=== PATIENT | male | born 1940 | race Caucasian/White ===

== ENCOUNTER 2020-09-19 10:05 | Inpatient (IN) ==
[2020-09-19] MEDS ORDERED: OPTIRAY 350 500ml IV ONE (10:24)
--- NOTE | 2020-09-19 10:25 | CT Scan Report ---
HEAD CT NONCONTRAST CT DOSE: HISTORY: Slurred speech. Dizziness. Stroke Like Symptoms TECHNIQUE: Multiaxial CT images of the head were performed without the use of intravenous contrast. A utomated exposure control was utilized for this study. A dose lowering technique was utilized adheri ng to the principles of ALARA. Comparison: None. Findings: Mild mucosal thickening within the ethmoid air cells. The mastoid air cells are clear. The calvarium and skull base are intact. There is no mass, hematoma, midline shift, acute infarct. White matter hypodensity is nonspecific but suggestive of microvascular ischemic change. The ventricles and sulci demonstrate mild age-related involutional changes. Impression: No acute intracranial abnormality. Atrophy and microvascular ischemic changes. ACT 112: Negative or not required by law. Electronically signed by: Chapo Ratliff M.D. 09/19/2020 10:24 AM
--- NOTE | 2020-09-19 10:37 | CT Scan Report ---
HEAD & NECK CTA HISTORY: Slurred speech. Dizziness. Stroke Like Symptoms TECHNIQUE: Multiaxial CT images of the head were performed following the intravenous administration o f contrast to evaluate the major cerebral vessels. Multiaxial CT images of the neck were also perform ed following the intravenous administration of contrast to evaluate the major cervical vessels. Maxim um intensity projection images were also obtained. A dose lowering technique was utilized adhering to the principles of ALARA. COMPARISON: None. FINDINGS: There is no mass, hematoma, midline shift, or acute infarct. Hypoplastic distal right vertebral arter y. There is moderate to severe multifocal narrowing seen within the distal intracranial vertebral art eries. There is focal moderate to severe narrowing of up to 60% within the proximal basilar artery be st seen on image 74. There is a hypoplastic right T1 segment which is considered a normal variant. Th ere is mild to moderate multifocal narrowing within the bilateral employment program representative without evidence for occlusion . There is no significant stenosis, occlusion, or aneurysm identified within the bilateral ACAs or MC As. No significant stenosis within the intracranial internal carotid arteries. There is mild calcifie d plaque within the bilateral carotid siphons. The major dural venous sinuses are patent. The aortic arch and proximal great vessels are widely patent. Moderate focal narrowing at the origi n of the right vertebral artery due to the calcified plaque. The right vertebral artery is slightly h ypoplastic in comparison to the left. No significant stenosis within the cervical portion of the left vertebral artery. Moderate atherosclerotic plaque within the distal aortic arch. Mild calcified plaq ue within the bilateral carotid bulbs. IMPRESSION: 1. Multifocal moderate to severe narrowing within the distal intracranial portions of the bilateral v ertebral arteries, proximal basilar artery as described above. 2. Mild to moderate multifocal narrowing within the bilateral employment program representative without evidence for occlusion. 3. No significant stenosis, occlusion, or aneurysm seen within the bilateral ACAs are MCAs. 4. No significant stenosis, occlusion, or dissection within the bilateral carotid arteries. 5. Moderate focal narrowing at the origin of the right vertebral artery due to the calcified plaque. ACT 112: Negative or not required by law. Electronically signed by: Chapo Ratliff M.D. 09/19/2020 10:35 AM
--- NOTE | 2020-09-19 10:43 | Emergency Department Note ---
History of Present Illness General Chief complaint: Stroke/CVA Symptoms Stated complaint: SLURRED SPEECH,DIZZY Time Seen by Provider: 09/19/20 10:15 Source: patient and family History of Present Illness Provider complaint: Difficulty walking Onset (ago): hour(s) Location: head Pain Consistency: + constant Maximum Pain Intensity: 0 Quality: + other (Unable to stand on 1 foot and leans toward the right side when walking) Relieved By: + none Associated symptoms: no chest pain, no cough, no fever/chills, no headaches, no malaise, no nausea/vomiting, no shortness of breath and no weakness This is a 80-year-old male who comes in with difficulty walking and difficulty speaking. He states his difficulty walking started last night at approximately 9 PM. He states that he was off balance and would lean toward the right side when he try to walk. Today in the shower he was unable to stand on 1 foot which is not normal for him. He also states that he has trouble articulating words. He is not having any trouble understanding or finding words. His states his speech was very slurred prior to arrival. The patient states he does not feel weak on one side of his body. He denies any problems with his vision or swallowing. He has had no recent illness and denies fever, cough or cold symptoms, headache, head injury, chest pain, shortness of breath, abdominal pain, vomiting or diarrhea. He has never had a stroke before. He states that he takes a baby aspirin every day and last took 1 last night. He is on lisinopril for hypertension. Home Medications Medication Instructions Recorded Confirmed Type aspirin [Aspirin Low Dose] 81 mg PO DAILY 09/19/20 09/19/20 History lisinopril 10 mg PO DAILY 09/19/20 09/19/20 History Allergies Allergy/AdvReac Type Severity Reaction Status Date / Time No Known Allergies Allergy Unverified 09/19/20 11:16 Past Med/Surg History Medical History (Updated 09/19/20 @ 17:06 by Rasheed Coughlin MD) Hypertension Proximal humerus fracture (07/09/13) Retinal vein occlusion Traumatic dislocation of left shoulder (07/07/13) Surgical History (Updated 09/19/20 @ 11:35 by Dalila Magana PA-C) H/O eye surgery History of shoulder surgery Family History (Updated 09/19/20 @ 11:35 by Dalila Magana PA-C) Other Heart disease Social History Smoking Status: Current some day smoker Tobacco Type: Pipe Do You Dip or Chew Tobacco: No; Hx Alcohol Use: No Hx Substance Use: No Preferred Language: Welsh Communication Ability: Effective Beliefs That Will Affect Care: None Current Living Situation: Spouse Other Information That Helps Us Care for You: No Feels Safe at Home: Yes Safety Concerns: Feels Safe At This Time Assistive Devices: Denture - Upper, Denture - Lower, Glasses and Hearing Aid - Bilateral Review of Systems See HPI for pertinent positives & negatives. and A total of 10 systems reviewed and were otherwise negative Physical Exam Vital Signs Vital Signs - 24 hr 09/19/20 10:09 09/19/20 10:30 09/19/20 10:36 Temperature 37 C Temperature Source Temporal Artery Scan Pulse Rate 65 69 57 L Pulse Rate from SpO2 Sensor 65 57 L Respiratory Rate 18 13 13 Respiratory Effort / Characteristics Non-Labored Spontaneous Respiratory Depth Normal Respiratory Pattern Regular Blood Pressure 189/98 H 158/81 H Blood Pressure Mean 128 106 Blood Pressure Position Sitting Pulse Oximetry 95 96 98 Oxygen Delivery Method Room Air Sepsis Recent Fever Within 48 Hours No Sepsis New/Unexplained Change in Mental Status N/A Sepsis Action Taken by Nursing No Action Required 09/19/20 10:45 09/19/20 10:49 09/19/20 11:00 Temperature Temperature Source Pulse Rate 58 L 58 L Pulse Rate from SpO2 Sensor 60 Respiratory Rate 23 19 Respiratory Effort / Characteristics Respiratory Depth Respiratory Pattern Blood Pressure 134/79 136/73 139/80 Blood Pressure Mean 97 94 99 Blood Pressure Position Pulse Oximetry 95 Oxygen Delivery Method Sepsis Recent Fever Within 48 Hours Sepsis New/Unexplained Change in Mental Status Sepsis Action Taken by Nursing Constitutional: Vital signs reviewed. Eyes: Pupils are equal round reactive to light. Conjunctiva are noninjected. ENT: Pharynx is clear without erythema or exudate. Mucous membranes are moist. Neck supple without meningeal signs. Respiratory: Clear to auscultation bilaterally. Breath sounds are equal bilaterally. Cardiovascular: Regular rate and rhythm. No rubs or gallops. GI: Soft, nondistended and nontender. Bowel sounds are present. Musculoskeletal: No peripheral edema. No lower extremity tenderness. Integumentary: No cyanosis. or jaundice. Neurologic: The patient is awake and alert. Cranial nerves II-XII are intact. Motor is 5 out of 5 all extremities. Sensation is intact to light touch all extremities. Intermittent slight slurring of the speech. No pronator drift. No limb ataxia. Psychiatric: Normal affect. Not anxious appearing. Course Administered Medications Sodium Chloride (Nss) 500 mls @ 75 mls/hr IV .[id number] FLOYD Stop: 09/19/20 22:59 Last Admin: 09/19/20 16:41 Dose: 75 mls/hr Documented by: [id number] Discontinued Medications Aspirin (Aspirin 81 Mg Chew) 81 mg PO NOW STA Stop: 09/19/20 11:07 Last Admin: 09/19/20 12:03 Dose: 81 mg Documented by: [id number] Clopidogrel Bisulfate (Clopidogrel Bisulfate 300 Mg Tab) 300 mg PO NOW STA Stop: 09/19/20 11:07 Last Admin: 09/19/20 12:03 Dose: 300 mg Documented by: [id number] Ioversol (Optiray 350 500ml) 116 ml IV ONCE ONE Stop: 09/19/20 10:25 Last Admin: 09/19/20 10:25 Dose: 116 ml Documented by: [id number] Critical Care Time Critical Care Time: Yes Total Critical Care Time: 35 I have personally spent approximately 35 minutes of critical care time in the direct management of this patient. This includes bedside care, interpretation of diagnostic studies, and testing, discussion with consultants, patient, and family members, and other required patient management activities. These minutes are in excess of all separately billable procedures. Medical Decision Making Differential Diagnosis TIA, CVA, intracranial mass, intracranial hemorrhage, metabolic derangement Medical Records Attestation: I reviewed the patient's medical records. I did perform a limited focused review of portions of the patient's old chart on the electronic medical record. The patient has had no recent pertinent visits to this hospital. Home Medications Current Medication List: was personally reviewed by me Laboratory Data Attestation: I reviewed the patient's lab results. Result diagrams: 09/19/20 10:31 09/19/20 10:31 Lab Results 09/19/20 09/19/20 09/19/20 Range/Units 10:29 10:31 10:31 WBC 6.69 (4.8-10.8) K/uL RBC 4.03 L (4.7-6.1) M/uL Hgb 12.7 L (14.0-18.0) g/dL Hct 37.4 L (42-52) % MCV 92.8 (80-100) fL MCH 31.5 (25-34) pg MCHC 34.0 (32-36) g/dL RDW Std Deviation 46.6 H (36.4-46.3) fL RDW Coeff of Ayaz 13.6 (11.5-14.5) % Plt Count 209 (130-400) K/uL MPV 10.3 (7.4-10.4) fL Immature Gran % (Auto) 0.3 % Neut % (Auto) 64.0 % Lymph % (Auto) 20.6 % Reynolds % (Auto) 7.9 % Eos % (Auto) 6.9 % Baso % (Auto) 0.3 % Neut # (Auto) 4.28 (1.4-6.5) K/uL Lymph # (Auto) 1.38 (1.2-3.4) K/uL Reynolds # (Auto) 0.53 (0.11-0.59) K/uL Eos # (Auto) 0.46 (0-0.5) K/uL Baso # (Auto) 0.02 (0-0.2) K/uL Immature Gran # (Auto) 0.02 (0.00-0.02) K/uL PT (9.0-12.0) Seconds INR (0.9-1.1) APTT (21.0-31.0) Seconds PTT Ratio Sodium (136-145) mmol/L Potassium (3.5-5.1) mmol/L Chloride (98-107) mmol/L Carbon Dioxide (21-32) mmol/L Anion Gap (3-11) BUN (7-18) mg/dl Creatinine (0.6-1.4) mg/dl Est Cr Clr Drug Dosing ml/min Est GFR ( Amer) Est GFR (Non-Af Amer) BUN/Creatinine Ratio (10-20) Glucose (70-99) mg/dl POC Glucose 105 H (70-99) mg/dl Calcium (8.5-10.1) mg/dl Magnesium (1.8-2.4) mg/dl Total Bilirubin (0.2-1) mg/dl AST (15-37) U/L ALT (12-78) U/L Alkaline Phosphatase (45-117) U/L Troponin I (0-0.045) ng/ml Total Protein (6.4-8.2) gm/dl Albumin (3.4-5.0) gm/dl Globulin (2.5-4.0) gm/dl Albumin/Globulin Ratio (0.9-2) Blood Type O Positive Antibody Screen NEGATIVE 09/19/20 09/19/20 Range/Units 10:31 10:31 WBC (4.8-10.8) K/uL RBC (4.7-6.1) M/uL Hgb (14.0-18.0) g/dL Hct (42-52) % MCV (80-100) fL MCH (25-34) pg MCHC (32-36) g/dL RDW Std Deviation (36.4-46.3) fL RDW Coeff of Ayaz (11.5-14.5) % Plt Count (130-400) K/uL MPV (7.4-10.4) fL Immature Gran % (Auto) % Neut % (Auto) % Lymph % (Auto) % Reynolds % (Auto) % Eos % (Auto) % Baso % (Auto) % Neut # (Auto) (1.4-6.5) K/uL Lymph # (Auto) (1.2-3.4) K/uL Reynolds # (Auto) (0.11-0.59) K/uL Eos # (Auto) (0-0.5) K/uL Baso # (Auto) (0-0.2) K/uL Immature Gran # (Auto) (0.00-0.02) K/uL PT 10.9 (9.0-12.0) Seconds INR 1.1 (0.9-1.1) APTT 28.4 (21.0-31.0) Seconds PTT Ratio 1.1 Sodium 134 L (136-145) mmol/L Potassium 4.1 (3.5-5.1) mmol/L Chloride 106 (98-107) mmol/L Carbon Dioxide 25 (21-32) mmol/L Anion Gap 3.0 (3-11) BUN 13 (7-18) mg/dl Creatinine 1.01 (0.6-1.4) mg/dl Est Cr Clr Drug Dosing 56.6 ml/min Est GFR ( Amer) 81.6 Est GFR (Non-Af Amer) 70.4 BUN/Creatinine Ratio 13.2 (10-20) Glucose 100 H (70-99) mg/dl POC Glucose (70-99) mg/dl Calcium 8.2 L (8.5-10.1) mg/dl Magnesium 2.1 (1.8-2.4) mg/dl Total Bilirubin 0.7 (0.2-1) mg/dl AST 15 (15-37) U/L ALT 18 (12-78) U/L Alkaline Phosphatase 47 (45-117) U/L Troponin I < 0.015 (0-0.045) ng/ml Total Protein 5.7 L (6.4-8.2) gm/dl Albumin 3.0 L (3.4-5.0) gm/dl Globulin 2.7 (2.5-4.0) gm/dl Albumin/Globulin Ratio 1.1 (0.9-2) Blood Type Antibody Screen Imaging Data Radiologist's Impression: Chest X-Ray 09/19/20 10:15 XR chest 1V portable HISTORY: 80 years-old Male Stroke Like Symptoms acute strokelike symptoms COMPARISON: Chest radiographs 07/07/2013 TECHNIQUE: Portable AP view of the chest FINDINGS: Cardiac mediastinal and hilar silhouettes are within normal limits. Outside plaque of the thoracic aorta. No pneumothorax, pleural effusion, airspace consolidation or overt pulmonary edema. Degenerative changes of the spine and right shoulder. Reverse left shoulder total joint arthroplasty. IMPRESSION: No acute process. ACT 112: Negative or not required by law. The above report was generated using voice recognition software. It may contain grammatical, syntax or spelling errors. Electronically signed by: Jasson Estrada M.D. 09/19/2020 11:[address] 09/19/20 10:[address] DOSE: HISTORY: Slurred speech. Dizziness. Stroke Like Symptoms TECHNIQUE: Multiaxial CT images of the head were performed without the use of intravenous contrast. Automated exposure control was utilized for this study. A dose lowering technique was utilized adhering to the principles of ALARA. Comparison: None. Findings: Mild mucosal thickening within the ethmoid air cells. The mastoid air cells are clear. The calvarium and skull base are intact. There is no mass, hematoma, midline shift, acute infarct. White matter hypodensity is nonspecific but suggestive of microvascular ischemic change. The ventricles and sulci demonstrate mild age-related involutional changes. Impression: No acute intracranial abnormality. Atrophy and microvascular ischemic changes. ACT 112: Negative or not required by law. Electronically signed by: Chapo Ratliff M.D. 09/19/2020 10:24 AM Head CTA 09/19/20 10:15 HEAD & NECK CTA HISTORY: Slurred speech. Dizziness. Stroke Like Symptoms TECHNIQUE: Multiaxial CT images of the head were performed following the intravenous administration of contrast to evaluate the major cerebral vessels. M ultiaxial CT images of the neck were also performed following the intravenous administration of contrast to evaluate the major cervical vessels. Maximum intensity projection images were also obtained. A dose lowering technique was utilized adhering to the principles of ALARA. COMPARISON: None. FINDINGS: There is no mass, hematoma, midline shift, or acute infarct. Hypoplastic distal right vertebral artery. There is moderate to severe multifocal narrowing seen within the distal intracranial vertebral arteries. There is focal moderate to severe narrowing of up to 60% within the proximal basilar artery best seen on image 74. There is a hypoplastic right T1 segment which is considered a normal variant. There is mild to moderate multifocal narrowing within the bilateral foundation director without evidence for occlusion. There is no significant stenosis, occlusion, or aneurysm identified within the bilateral ACAs or MCAs. No s ignificant stenosis within the intracranial internal carotid arteries. There is mild calcified plaque within the bilateral carotid siphons. The major dural venous sinuses are patent. The aortic arch and proximal great vessels are widely patent. Moderate focal narrowing at the origin of the right vertebral artery due to the calcified plaque. The right vertebral artery is slightly hypoplastic in comparison to the left. No significant stenosis within the cervical portion of the left vertebral artery. Moderate atherosclerotic plaque within the distal aortic arch. Mild c alcified plaque within the bilateral carotid bulbs. IMPRESSION: 1. Multifocal moderate to severe narrowing within the distal intracranial portions of the bilateral vertebral arteries, proximal basilar artery as described above. 2. Mild to moderate multifocal narrowing within the bilateral foundation director without evidence for occlusion. 3. No significant stenosis, occlusion, or aneurysm seen within the bilateral ACAs are MCAs. 4. No significant stenosis, occlusion, or dissection within the bilateral carotid arteries. 5. Moderate focal narrowing at the origin of the right vertebral artery due to the calcified plaque. ACT 112: Negative or not required by law. Electronically signed by: Chapo Ratliff M.D. 09/19/2020 10:35 AM Neck CTA 09/19/20 10:15 HEAD & NECK CTA HISTORY: Slurred speech. Dizziness. Stroke Like Symptoms TECHNIQUE: Multiaxial CT images of the head were performed following the intra venous administration of contrast to evaluate the major cerebral vessels. Multiaxial CT images of the neck were also performed following the intravenous administration of contrast to evaluate the major cervical vessels. Maximum intensity projection images were also obtained. A dose lowering technique was utilized adhering to the principles of ALARA. COMPARISON: None. FINDINGS: There is no mass, hematoma, midline shift, or acute infarct. Hypoplastic distal right vertebral artery. There is moderate to severe multifocal narrowing seen within the distal intracranial vertebral arteries. There is focal moderate to severe narrowing of up to 60% within the proximal basilar artery best seen on image 74. There is a hypoplastic right T1 segment which is considered a normal variant. There is mild to moderate multifocal narrowing within the bilateral foundation director without evidence for occlusion. There is no significant stenosis, occlusion, or aneurysm identified within the bilateral ACAs or MCAs. No significant stenosis within the intracranial internal carotid arteries. There is mild calcified plaque within the bilateral carotid siphons. The major dural venous sinuses are patent. The aortic arch and proximal great vessels are widely patent. Moderate focal narrowing at the origin of the right vertebral artery due to the calcified plaque. The right vertebral artery is slightly hypoplastic in comparison to the left. No significant stenosis within the cervical portion of the left vertebral artery. Moderate atherosclerotic plaque within the distal aortic arch. Mild calcified plaque within the bilateral carotid bulbs. IMPRESSION: 1. Multifocal moderate to severe narrowing within the distal intracranial portions of the bilateral vertebral arteries, proximal basilar artery as described above. 2. Mild to moderate multifocal narrowing within the bilateral foundation director without evidence for occlusion. 3. No significant stenosis, occlusion, or aneurysm seen within the bilateral ACAs are MCAs. 4. No significant stenosis, occlusion, or dissection within the bilateral carotid arteries. 5. Moderate focal narrowing at the origin of the right vertebral artery due to the calcified plaque. ACT 112: Negative or not required by law. Electronically signed by: Chapo Ratliff M.D. 09/19/2020 10:35 AM ECG Data Attestation: I personally reviewed and interpreted this ECG as follows: Indication: + other (Stroke symptoms) Rate (beats per minute): 65 Rhythm: + normal sinus ECG [place]: + Normal ECG ST segments: no ST elevation ECG Findings: + Q waves (Inferior); no PVCs MDM Narrative I did evaluate the patient as noted above. A stroke alert was called by the triage nurse. The patient is presenting with difficulty walking and speaking. His last known well was sometime last night. He is therefore not an IV TPA candidate. IV access was established. I did place an order for continuous ca rdiac monitoring. The monitor showed normal sinus rhythm at a rate of 63 bpm. I did order and personally review the patient's 12-lead EKG as described above. He has Q waves inferiorly. No ST elevations. I did order and personally reviewed the images of the patient's chest x-ray as described above. There is no evidence of pneumonia. I did order and review the patient's blood work as noted in the electronic medical record. He has mild anemia with a hemoglobin 12.7. Electrolytes demonstrate a sodium of 134. Troponin is negative. I did order a CT of the head and CT angiogram of the head and neck. I did review the images myself as well as the radiology report as described above. There is no evidence of acute intracranial abnormality on plain CT. He has moderate disease in the bilateral vertebral arteries and the basilar arteries. No occlusion is noted. I did discuss the case with Dr. Kumar at [facility]. He recommended placing patient on a statin and loading him with Plavix for dual antiplatelet therapy with aspirin. I did treat the patient with Plavix 300 mg p.o. and aspirin. I did discuss the test results with the patient and the plan with the patient and family. I did recommend hospitalization for MRI and further care and evaluation. I did discuss case with the hospitalist and watch case polisher. Impression & Plan Acute cerebrovascular accident (CVA) Discharge Plan Visit Data Chief Complaint: Stroke/CVA Symptoms Stated Complaint: SLURRED SPEECH,DIZZY ED Provider: Rasheed Coughlin Discharge Problem: Acute cerebrovascular accident (CVA) Patient Disposition: Admitted As Inpatient Discharge Instructions Interventions: ED Discharge Assessment Last Done: 09/19/20 15:15
[2020-09-19 10:44] LABS: Basophils # (auto) 0.02 K/uL (0-0.2); Basophils % (auto) 0.3 %; Eosinophils # (auto) 0.46 K/uL (0-0.5); Eosinophils % (auto) 6.9 %; Hematocrit (blood only) 37.4 % (42-52); Hemoglobin 12.7 g/dL (14.0-18.0); Immature Granulocytes # (auto) 0.02 K/uL (0.00-0.02); Immature Granulocytes % (auto) 0.3 %; Lymphocytes # (auto) 1.38 K/uL (1.2-3.4); Lymphocytes % (auto) 20.6 %; Mean Corpuscular Hemoglobin 31.5 pg (25-34); Mean Corpuscular Volume 92.8 fL (80-100); Mean Platelet Volume 10.3 fL (7.4-10.4); Monocytes # (auto) 0.53 K/uL (0.11-0.59); Monocytes % (auto) 7.9 %; Neutrophils # (auto) 4.28 K/uL (1.4-6.5); Platelet Count 209 K/uL (130-400); RDW Coefficient of Variation 13.6 % (11.5-14.5); RDW Standard Deviation 46.6 fL (36.4-46.3); Red Blood Count 4.03 M/uL (4.7-6.1); White Blood Count 6.69 K/uL (4.8-10.8)
[2020-09-19 10:54] LABS: INR 1.1 (0.9-1.1); Partial Thromboplastin Ratio 1.1; Partial Thromboplastin Time 28.4 Seconds (21.0-31.0); Prothrombin Time 10.9 Seconds (9.0-12.0)
[2020-09-19 11:04] LABS: Alanine Aminotransferase 18 U/L (12-78); Aspartate Aminotransferase 15 U/L (15-37); BUN Creatinine Ratio 13.2 (10-20); Blood Urea Nitrogen 13 mg/dl (7-18); Calcium 8.2 mg/dl (8.5-10.1); Carbon Dioxide 25 mmol/L (21-32); Chloride 106 mmol/L (98-107); Creatinine Clr Calc Pharmacy 56.6 ml/min; Est GFR (African American) 81.6; Est GFR (Non-African American) 70.4; Glucose 100 mg/dl (70-99); Magnesium 2.1 mg/dl (1.8-2.4); Potassium 4.1 mmol/L (3.5-5.1); Sodium 134 mmol/L (136-145)
[2020-09-19] MEDS ORDERED: CLOPIDOGREL BISULFATE 300 MG TAB PO STA (11:06)
[2020-09-19] MEDS ORDERED: ASPIRIN 81 MG CHEW PO STA (11:06)
--- NOTE | 2020-09-19 11:07 | XRay Report ---
XR chest 1V portable HISTORY: 80 years-old Male Stroke Like Symptoms acute strokelike symptoms COMPARISON: Chest radiographs 07/07/2013 TECHNIQUE: Portable AP view of the chest FINDINGS: Cardiac mediastinal and hilar silhouettes are within normal limits. Outside plaque of the thoracic ao rta. No pneumothorax, pleural effusion, airspace consolidation or overt pulmonary edema. Degenerative changes of the spine and right shoulder. Reverse left shoulder total joint arthroplasty. IMPRESSION: No acute process. ACT 112: Negative or not required by law. The above report was generated using voice recognition software. It may contain grammatical, syntax o r spelling errors. Electronically signed by: Jasson Estrada M.D. 09/19/2020 11:06 AM
[2020-09-19 11:08] LABS: Albumin Globulin Ratio 1.1 (0.9-2); Alkaline Phosphatase 47 U/L (45-117); Bilirubin,Total 0.7 mg/dl (0.2-1); Globulin 2.7 gm/dl (2.5-4.0); Total Protein 5.7 gm/dl (6.4-8.2); Troponin I < 0.015 ng/ml (0-0.045)
--- NOTE | 2020-09-19 11:28 | History & Physical Report ---
Date of Service September 19, 2020 Assessment & Plan (1) Stroke-like symptoms: This is a 80yo M with a PMH of HTN and history of L retinal vein occlusion who presents with stroke like symptoms beginning last evening. Dysarthria and imbalance noted since last evening. Dysarthria has since resolved CT head with no acute intracranial abnormality. Atrophy and microvascular ischemic changes CTA head/neck with: 1. Multifocal moderate to severe narrowing within the distal intracranial portions of the bilateral vertebral arteries, proximal basilar artery as described above. 2. Mild to moderate multifocal narrowing within the bilateral fruit and vegetable packer without evidence for occlusion. 3. No significant stenosis, occlusion, or aneurysm seen within the bilateral ACAs are MCAs. 4. No significant stenosis, occlusion, or dissection within the bilateral carotid arteries. 5. Moderate focal narrowing at the origin of the right vertebral artery due to the calcified plaque ED physician discussed with Arianne neurology, who recommended dual antiplatelet therapy and initiating a statin Ordered MRI brain w/wo, echo w/ bubble study, a1c and fasting lipid panel in AM, PT, OT, speech therapy evaluations Routine neuro consult Continue aspirin, plavix, start statin NPO until speech eval with gentle IV fluids (2) Hypertension: Hold home lisinopril to allow for permissive HTN for cerebral perfusion in setting of possible ischemic event DVT Ppx: SQ heparin Code status: FULL PCP: Tegan - will need to establish with new PCP Dispo: Admitted to PCU. Discharge planning per stroke set protocol Patient seen in collaboration with Dr. Cortes. Please see addendum. History of Present Illness Chief Complaint: stroke like sx Primary Care Provider: Bhupinder Javed MD This is a 80yo M with a PMH of HTN and history of L retinal vein occlusion who presents with stroke like symptoms beginning last evening. Noticed that he felt off balance and leaning to the right while showering last evening. Also noticed difficulty getting words out. This morning patient went shopping with and felt more off balance, leaning towards the left. noticed worsening of garbed speech as well. Denies difficulty swallowing or other focal weakness or paresthesias. No fever, chills, lightheadedness, chest pain, SOB, nausea, vomiting, abdominal pain, dysuria, diarrhea or constipation. Denies stroke history. History of carotid duplex in 2003 that was normal at outside hospital. Allergies Allergy/AdvReac Type Severity Reaction Status Date / Time No Known Allergies Allergy Unverified 09/19/20 11:16 Home Medications Medication Instructions Recorded Confirmed Type aspirin [Aspirin Low Dose] 81 mg PO DAILY 09/19/20 09/19/20 History lisinopril 10 mg PO DAILY 09/19/20 09/19/20 History Past Med/Surg History Medical History (Updated 09/19/20 @ 11:37 by Dalila Magana PA-C) Hypertension Proximal humerus fracture (07/09/13) Retinal vein occlusion Traumatic dislocation of left shoulder (07/07/13) Surgical History (Updated 09/19/20 @ 11:35 by Dalila Magana PA-C) H/O eye surgery History of shoulder surgery Family History (Updated 09/19/20 @ 11:35 by Dalila Magana PA-C) Other Heart disease Social History Smoking Status: Current some day smoker Tobacco Type: Pipe Preferred Language: Kyrgyz Feels Safe at Home: Yes Review of Systems Review of Systems: At least ten systems reviewed and negative except as noted in the HPI. Physical Exam Physical Exam: General Appearance: WD/WN, vitals as above, NAD, sitting up in bed, pleasant, conversing easily Head: normocephalic, atraumatic Eyes: normal inspection, PERRL, + chronic L visual field defect, conjunctivae normal, anicteric sclerae ENT: external ear and nose normal, oropharynx normal Neck: normal visual inspection, trachea midline, no thyromegaly Respiratory: normal respiratory effort, lungs clear to auscultation, no wheeze, rales, rhonchi. No accessory muscle use Cardiovascular: bradycardic rate, regular rhythm, no murmur appreciated, normal peripheral pulses, no BLE edema. Vessels: no JVD Chest: normal inspection of chest Abdomen/GI: normal bowel sounds, soft, nontender, no hepatosplenomegaly Extremities/Musculoskeletal: no cyanosis or clubbing, extremities motor strength 5/5 Neurologic: PERRL, EOMI, accommodation nl, no face palsy, no dysarthria, CN's II-XI intact bilaterally and moves all extremities Psychiatric: A+Ox3, euthymic affect Skin: no rashes, normal color, warm/dry Results & Data Results & Data ([facility]) Vital Signs (Past 12 Hours) Vital Signs Temp Pulse Resp BP Pulse Ox 09/19/20 10:36 57 L 13 98 09/19/20 10:30 69 13 158/81 H 96 09/19/20 10:09 37 C 65 18 189/98 H 95 Laboratory Results Short CBC 09/19/20 Range/Units 10:31 WBC 6.69 (4.8-10.8) K/uL Hgb 12.7 L (14.0-18.0) g/dL Hct 37.4 L (42-52) % Plt Count 209 (130-400) K/uL BMP 09/19/20 10:31 Sodium 134 L Potassium 4.1 Chloride 106 Carbon Dioxide 25 BUN 13 Creatinine 1.01 Glucose 100 H Calcium 8.2 L Cardiac Enzymes 09/19/20 Range/Units 10:31 Troponin I < 0.015 (0-0.045) ng/ml Liver Function 09/19/20 Range/Units 10:31 Total Bilirubin 0.7 (0.2-1) mg/dl AST 15 (15-37) U/L ALT 18 (12-78) U/L Alkaline Phosphatase 47 (45-117) U/L Albumin 3.0 L (3.4-5.0) gm/dl Diagnostic Findings Chest X-Ray 09/19/20 10:15 XR chest 1V portable HISTORY: 80 years-old Male Stroke Like Symptoms acute strokelike symptoms COMPARISON: Chest radiographs 07/07/2013 TECHNIQUE: Portable AP view of the chest FINDINGS: Cardiac mediastinal and hilar silhouettes are within normal limits. Outside plaque of the thoracic aorta. No pneumothorax, pleural effusion, airspace consolidation or overt pulmonary edema. Degenerative changes of the spine and right shoulder. Reverse left shoulder total joint arthroplasty. IMPRESSION: No acute process. ACT 112: Negative or not required by law. The above report was generated using voice recognition software. It may contain grammatical, syntax or spelling errors. Electronically signed by: Jasson Estrada M.D. 09/19/2020 11:[address] 09/19/20 10:[address] DOSE: HISTORY: Slurred speech. Dizziness. Stroke Like Symptoms TECHNIQUE: Multiaxial CT images of the head were performed without the use of intravenous contrast. Automated exposure control was utilized for this study. A dose lowering technique was utilized adhering to the principles of ALARA. Comparison: None. Findings: Mild mucosal thickening within the ethmoid air cells. The mastoid air cells are clear. The calvarium and skull base are intact. There is no mass, hematoma, midline shift, acute infarct. White matter hypodensity is nonspecific but suggestive of microvascular ischemic change. The ventricles and sulci demonstrate mild age-related involutional changes. Impression: No acute intracranial abnormality. Atrophy and microvascular ischemic changes. ACT 112: Negative or not required by law. Electronically signed by: Chapo Ratliff M.D. 09/19/2020 10:24 AM Head CTA 09/19/20 10:15 HEAD & NECK CTA HISTORY: Slurred speech. Dizziness. Stroke Like Symptoms TECHNIQUE: Multiaxial CT images of the head were performed following the intravenous administration of contrast to evaluate the major cerebral vessels. Multiaxial CT images of the neck were also performed following the intravenous administration of contrast to evaluate the major cervical vessels. Maximum intensity projection images were also obtained. A dose lowering technique was utilized adhering to the principles of ALARA. COMPARISON: None. FINDINGS: There is no mass, hematoma, midline shift, or acute infarct. Hypoplastic distal right vertebral artery. There is moderate to severe multifocal narrowing seen within the distal intracranial vertebral arteries. There is focal moderate to severe narrowing of up to 60% within the proximal basilar artery best seen on image 74. There is a hypoplastic right T1 segment which is considered a normal variant. There is mild to moderate multifocal narrowing within the bilateral fruit and vegetable packer without evidence for occlusion. There is no significant stenosis, occlusion, or aneurysm identified within the bilateral ACAs or MCAs. No significant stenosis within the intracranial internal carotid arteries. There is mild calcified plaque within the bilateral carotid siphons. The major dural venous sinuses are patent. The aortic arch and proximal great vessels are widely patent. Moderate focal narrowing at the origin of the right vertebral artery due to the calcified plaque. The right vertebral artery is slightly hypoplastic in comparison to the left. No significant stenosis within the cervical portion of the left vertebral artery. Moderate atherosclerotic plaque within the distal aortic arch. Mild calcified plaque within the bilateral carotid bulbs. IMPRESSION: 1. Multifocal moderate to severe narrowing within the distal intracranial portions of the bilateral vertebral arteries, proximal basilar artery as described above. 2. Mild to moderate multifocal narrowing within the bilateral fruit and vegetable packer without evidence for occlusion. 3. No significant stenosis, occlusion, or aneurysm seen within the bilateral ACAs are MCAs. 4. No significant stenosis, occlusion, or dissection within the bilateral carotid arteries. 5. Moderate focal narrowing at the origin of the right vertebral artery due to the calcified plaque. ACT 112: Negative or not required by law. Electronically signed by: Chapo Ratliff M.D. 09/19/2020 10:35 AM Neck CTA 09/19/20 10:15 HEAD & NECK CTA HISTORY: Slurred speech. Dizziness. Stroke Like Symptoms TECHNIQUE: Multiaxial CT images of the head were performed following the intravenous administration of contrast to evaluate the major cerebral vessels. Multiaxial CT images of the neck were also performed following the intravenous administration of contrast to evaluate the major cervical vessels. Maximum intensity projection images were also obtained. A dose lowering technique was utilized adhering to the principles of ALARA. COMPARISON: None. FINDINGS: There is no mass, hematoma, midline shift, or acute infarct. Hypoplastic distal right vertebral artery. There is moderate to severe multifocal narrowing seen within the distal intracranial vertebral arteries. There is focal moderate to severe narrowing of up to 60% within the proximal basilar artery best seen on image 74. There is a hypoplastic right T1 segment which is considered a normal variant. There is mild to moderate multifocal narrowing within the bilateral fruit and vegetable packer without evidence for occlusion. There is no significant stenosis, occlusion, or aneurysm identified within the bilateral ACAs or MCAs. No significant stenosis within the intracranial internal carotid arteries. There is mild calcified plaque within the bilateral carotid siphons. The major dural venous sinuses are patent. The aortic arch and proximal great vessels are widely patent. Moderate focal narrowing at the origin of the right vertebral artery due to the calcified plaque. The right vertebral artery is slightly hypoplastic in comparison to the left. No significant stenosis within the cervical portion of the left vertebral artery. Moderate atherosclerotic plaque within the distal aortic arch. Mild calcified plaque within the bilateral carotid bulbs. IMPRESSION: 1. Multifocal moderate to severe narrowing within the distal intracranial portions of the bilateral vertebral arteries, proximal basilar artery as described above. 2. Mild to moderate multifocal narrowing within the bilateral fruit and vegetable packer without evidence for occlusion. 3. No significant stenosis, occlusion, or aneurysm seen within the bilateral ACAs are MCAs. 4. No significant stenosis, occlusion, or dissection within the bilateral carotid arteries. 5. Moderate focal narrowing at the origin of the right vertebral artery due to the calcified plaque. ACT 112: Negative or not required by law. Electronically signed by: Chapo Ratliff M.D. 09/19/2020 10:35 AM Code Status & VTE Plan VTE Prophylaxis Plan VTE Prophylaxis will be ordered: Yes Supervising Physician Co-Signing Physician Notes Patient is a 80-year-old male with history of hypertension, chronic left retinal vein occlusion no other significant medical problems presents with history of expressive aphasia, ambulatory dysfunction/balance issues which started about 9 PM yesterday. Dysarthria lasted this morning as well. Currently while in ED, his speech is back to baseline. Denies any history of fall, head trauma, headache, change in vision, facial deformity, focal weakness, numbness, tingling, recent fever, chills, chest pain, shortness of breath, dizziness, nausea, abdominal pain. He takes aspirin [address] head showed no acute intracranial abnormality. Atrophy and microvascular ischemic changes noted. Head and neck showed multifocal moderate to severe narrowing within the distal intracranial portions of the bilateral vertebral arteries, proximal basilar artery, bilateral fruit and vegetable packer without evidence of occlusion. Also noted moderate focal narrowing at the origin of the right vertebral artery due to calcified plaque. Patient denies any TIAs or CVAs in the past. On exam patient is moderately built and nourished, no apparent distress, normocephalic atraumatic, lungs are clear to auscultation, S1-S2, no murmur, bradycardia, no pedal edema, abdomen soft, nontender, normal bowel sounds, alert, awake, oriented, grossly no focal deficits on motor or, sensory exam, speech clear, no facial deformity. Patient received aspirin, Plavix while in ED as recommended by tele stroke neurologist. Patient is admitted for management of strokelike symptoms likely TIA, to rule out CVA. Will request stroke work-up including brain MRI, echo, lipid panel, A1c and monitor on telemetry. Will consult neurologist and request neurochecks. Will hold lisinopril for permissive hypertension. We will keep him n.p.o. until speech evaluates. PT OT requested. Fall, aspiration precautions. We will continue aspirin, Plavix. I personally reviewed the record. Patient is interviewed and examined at bedside. Patient's care is coordinated with Dalila Magana PA-C. Please refer to the documentation above for details of patient's presentation and for discussion of other issues.
[2020-09-19 13:20] LABS: Influenza A virus by PCR Negative (Neg); Influenza B virus by PCR Negative (Neg); RSV by PCR Negative (Neg); SARS CoV2 RNA(COVID-19) InHosp NEGATIVE (Negative)
[2020-09-19] MEDS ORDERED: PHARMACIST DISCHARGE MED REC CONSULT PRN (16:20)
[2020-09-19] MEDS ORDERED: SODIUM CHLORIDE 0.9% 500 ML IV SCH (16:20)
[2020-09-19] MEDS ORDERED: ACETAMINOPHEN 325 MG TAB PO PRN (16:20)
[2020-09-19] MEDS ORDERED: POLYETHYLENE (MIRALAX) 17 GM PACK PO PRN (16:20)
[2020-09-19] MEDS ORDERED: ONDANSETRON INJ 2 MG/ML 2 ML VIAL IV PRN (16:20)
[2020-09-19] MEDS: HEPARIN SOD 5,000 UNIT/0.5 ML VIAL SQ SCH (20:28)
[2020-09-19] MEDS ORDERED: GADOBUTROL 65ML VIAL IV ONE (20:48)
[2020-09-20 06:27] LABS: Hematocrit (blood only) 40.4 % (42-52); Hemoglobin 13.7 g/dL (14.0-18.0); Mean Corpuscular Hemoglobin 31.8 pg (25-34); Mean Corpuscular Hgb Conc 33.9 g/dL (32-36); Mean Corpuscular Volume 93.7 fL (80-100); Mean Platelet Volume 10.2 fL (7.4-10.4); Platelet Count 189 K/uL (130-400); RDW Coefficient of Variation 13.6 % (11.5-14.5); RDW Standard Deviation 47.1 fL (36.4-46.3); Red Blood Count 4.31 M/uL (4.7-6.1); White Blood Count 6.61 K/uL (4.8-10.8)
--- NOTE | 2020-09-20 06:47 | Electrocardiogram Report ---
Test Reason : Blood Pressure : / mmHG Vent. 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
[2020-09-20 07:02] LABS: BUN Creatinine Ratio 11.6 (10-20); Calcium 8.8 mg/dl (8.5-10.1); Creatinine Clr Calc Pharmacy 43.1 ml/min; Est GFR (African American) 65.6; Est GFR (Non-African American) 56.6; Potassium 3.8 mmol/L (3.5-5.1)
--- NOTE | 2020-09-20 08:34 | Magnetic Resonance Report ---
MRI OF THE BRAIN WITHOUT AND WITH IV CONTRAST CLINICAL HISTORY: Slurred speech. Acute stroke symptoms. COMPARISON STUDY: Noncontrast head CT dated 09/19/2020 TECHNIQUE: MRI of the brain was performed from the vertex to the skull base utilizing various T1 and T2 weighted sequences. Following the IV administration of 7 mL of Gadavist contrast, additional enhan berenice images were obtained. FINDINGS: Sagittal T1, axial diffusion, proton density and T2 weighted axial, coronal FLAIR, and pre and post a xial T1-weighted images were acquired. These were supplemented with post gadolinium coronal T1 weight ed images. No intra or extra-axial mass lesions are visualized. Axial diffusion-weighted images reveal no evidence of acute or subacute infarction. There is mild ventricular prominence, finding which is felt to be secondary to volume loss Proton density T2-weighted and FLAIR images reveal scattered foci of increased T2 signal within the w jairon matter, likely on a small vessel basis. There are no abnormal flow voids. There is no evidence of pathologic enhancement. IMPRESSION: 1. No acute intracranial findings 2. No evidence of intracranial mass 2. No evidence of acute or subacute infarction 4. Foci of increased T2 and FLAIR signal within the white matter likely on a small vessel ischemic ba sis. ACT 112: Negative or not required by law. Electronically signed by: Ortega Warner M.D. 09/20/2020 8:33 AM
[2020-09-20] MEDS: HEPARIN SOD 5,000 UNIT/0.5 ML VIAL SQ SCH (08:38)
--- NOTE | 2020-09-20 08:39 | Hospitalist Progress Note ---
Date of Service September 20, 2020 Assessment & Plan (1) Stroke-like symptoms: This is a 80yo M with a PMH of HTN and history of L retinal vein occlusion who presents with stroke like symptoms beginning last evening. Dysarthria and imbalance noted since last evening. Dysarthria has since resolved CT head with no acute intracranial abnormality. Atrophy and microvascular ischemic changes CTA head/neck with: 1. Multifocal moderate to severe narrowing within the distal intracranial portions of the bilateral vertebral arteries, proximal basilar artery as described above. 2. Mild to moderate multifocal narrowing within the bilateral syrup filterer without evidence for occlusion. 3. No significant stenosis, occlusion, or aneurysm seen within the bilateral ACAs are MCAs. 4. No significant stenosis, occlusion, or dissection within the bilateral carotid arteries. 5. Moderate focal narrowing at the origin of the right vertebral artery due to the calcified plaque ED physician discussed with Arianne neurology, who recommended dual antiplatelet therapy and initiating a statin MRI brain no evidence of CVA, echo w/ bubble study, a1c and fasting lipid panel in AM, PT, OT, speech therapy evaluations Routine neuro consult Continue aspirin, plavix, Statin NPO until speech eval with gentle IV fluids (2) Hypertension: Hold home lisinopril to allow for permissive HTN for cerebral perfusion in setting of possible ischemic event DVT Ppx: SQ heparin Code status: FULL PCP: Tegan - will need to establish with new PCP Dispo: Admitted to PCU. Discharge planning per stroke set protocol Labs checked ROS-No Headache, No Visual Changes, No Nausea, No Vomiting, No Fever, No Chills, No Neck Pain or Stiffness, No Chest Pain, No Palpitations, No SOB, No CABRERA, No Cough, No Sputum, No Wheezing, No Abdominal Pain, No Diarrhea, No Hematemesis, No Hemoptysis, No Unexpected Weight Loss, No Flank pain, No Melena, No Hematochezia, No Frequency, No Urgency, No Burning, No Hematuria, No Rashes, No Diaphoresis. Appetite is Normal Physical Exam Gen-AAO x 3, NAD, Afebrile Head-NCAT, EOMI, PERRLA, Anicteric Sclera, No Posterior Pharyngeal Erythema Neck-Supple, No JVD, No Thyromegaly, No Masses, No LAD, No Bruits Lungs-Clear to Auscultation Bilaterally, No Rales, No Rhonchi, No Wheezing, No Crepitus Chest-No S4, +S1, +S2, No S3, No Murmurs, No Rubs, No Gallops, No Ectopy Abdomen-Soft, Bowel Sounds Present, Non Tender, Non Distended, No Hepatomegaly, No Splenomegaly, No Palpable Masses, No Rebound, No Rigidity, No Guarding Musculoskeletal-Full Range of Motion Bilaterally, No CVAT Extremities-No Cyanosis, No Clubbing, No Edema Nuero-Cranial Nerves II-XII grossly intact, Motor WNL, DTRs WNL, Strength WNL, Non Focal Psych-Normal Mood Admission and Anticipated Discharge Date Admission Date: September 19, 2020 Results & Data Results & Data ([facility]) Vital Signs (Past 12 Hours) Vital Signs Temp Pulse Resp BP Pulse Ox 09/20/20 07:44 36.7 C 59 L 18 157/90 H 96 09/20/20 03:42 36.7 C 64 18 123/69 95 09/19/20 23:54 36.7 C 72 12 106/63 98
[2020-09-20] MEDS ORDERED: ATORVASTATIN 40 MG TAB PO SCH (09:00)
[2020-09-20] MEDS ORDERED: CLOPIDOGREL BISULFATE 75 MG TAB PO SCH (09:00)
[2020-09-20] MEDS ORDERED: ASPIRIN 81 MG ECTAB PO SCH (09:00)
[2020-09-20 09:06] LABS: Estimated Average Glucose 123 mg/dl; Hemoglobin A1C 5.9 % (4.5-5.6)
--- NOTE | 2020-09-20 12:11 | Neurology Consultation ---
Date of Consultation September 20, 2020 Assessment & Plan (1) Stroke-like symptoms: 1. MRI no evidence of acute findings 2. CTA head neck- some severe narrowing of verts and proximal basilar artery 3. continue aspirin 81 mg and add plavix 75 mg x 21 days then plavix alone for life 4. optimize HTN HLD, DM LDL <70 5. PT/OT for any discharge needs. 6. TTE showed normal EF with no cardiac source of embolism Supervising Physician Co-Signing Physician Notes Patient was seen and examined. Admitted with some ataxia yesterday. Symptoms resolved. On ASA at home. ON examine this afternoon appears stable on his feet. Difficulty with tandem gait. Likely viral or peripheral. TIA seems less likley but agree with considering potential for TIA. DAP for 21 days then Plavix 75 mg daily as CTA shows PVD. MRI reviewed. NO evidence of stroke. Neuro follow up in 8 weeks. Blood pressure goal SBP<140, DBP<90 mm Hg. History of Present Illness Reason for Consultation: stroke eval Requesting Physician: Maurizio Villalta DO Attending Physician: Maurizio Villalta DO History of Present Illness Mauri is a 80 year old male with PMH - HTN and L retinal vein occlusion who presented to [facility] 09/19/2020 with stroke like symptoms He felt off balance and leaning to the right while showering last evening and difficulty getting words out. He went shopping with and felt more off balance, leaning towards the left. His noticed worsening of garbed speech as well. Allergies Allergy/AdvReac Type Severity Reaction Status Date / Time No Known Allergies Allergy Unverified 09/19/20 11:16 Home Medications Medication Instructions Recorded Confirmed Type aspirin [Aspirin Low Dose] 81 mg PO DAILY 09/19/20 09/19/20 History lisinopril 10 mg PO DAILY 09/19/20 09/19/20 History atorvastatin 40 mg PO QAM #30 tab 09/20/20 Rx clopidogrel 75 mg PO QAM #30 tab 09/20/20 Rx Patient History Medical History (Updated 09/19/20 @ 17:06 by Rasheed Coughlin MD) Hypertension Proximal humerus fracture (07/09/13) Retinal vein occlusion Traumatic dislocation of left shoulder (07/07/13) Surgical History (Updated 09/19/20 @ 11:35 by Dalila Magana PA-C) H/O eye surgery History of shoulder surgery Family History (Updated 09/19/20 @ 11:35 by Dalila Magana PA-C) Other Heart disease Social History Smoking Status: Current some day smoker Tobacco Type: Pipe Do You Dip or Chew Tobacco: No; Hx Alcohol Use: No Hx Substance Use: No Preferred Language: Wolof Communication Ability: Effective Beliefs That Will Affect Care: None Current Living Situation: Spouse Other Information That Helps Us Care for You: No Feels Safe at Home: Yes Safety Concerns: Feels Safe At This Time Assistive Devices: Glasses Review of Systems Review of Systems: All systems reviewed & are unremarkable except as noted in HPI & below Physical Exam Physical Exam: EXAM: Constitutional: appearance normally developed Face: normocephalic and atraumatic Eyes: normal lids, normal conjunctiva Neck: supple Respiratory: normal effort Cardiovascular: normal pulses Abdomen: non distended Skin: no rashes, lesions, or ulcers noted Psychiatric: normal mood and normal affect NEUROLOGIC EXAMINATION: Appearance: no acute distress Orientation: awake, alert and oriented x 3 Mental Status: alert Attention: normal Knowledge: appropriate Language: no aphasia Speech: no dysarthria Cranial Nerves: CN 2 - no visual defect on confrontation and pupils round, equal, reactive to light CN 3, 4, 6 - extra-ocular movements intact CN 5 - facial sensation intact CN 7 - no facial asymmetry CN 8 - intact hearing CN 9, 10 - palate symmetric CN 11 - good shoulder shrug CN 12 - tongue midline Gait: stable, difficulty with tandem gait Coordination: no ataxia with finger to nose testing Sensory: intact and symmetric to light touch Muscle Tone: normal Muscl e exam: 09/25 [facility] Results & Data ([facility]) Vital Signs (Past 12 Hours) Vital Signs Temp Pulse Pulse Resp BP Pulse Ox 09/20/20 08:00 54 L 09/20/20 07:44 36.7 C 59 L 18 157/90 H 96 09/20/20 03:42 36.7 C 64 18 123/69 95 Laboratory Results Abnormal lab results 09/20/20 09/20/20 09/20/20 Range/Units 06:02 06:02 06:02 RBC 4.31 L (4.7-6.1) M/uL Hgb 13.7 L (14.0-18.0) g/dL Hct 40.4 L (42-52) % RDW Std Deviation 47.1 H (36.4-46.3) fL Chloride 108 H (98-107) mmol/L Hemoglobin A1c 5.9 H (4.5-5.6) % Triglycerides 172 H (0-150) mg/dl Diagnostic Findings CTA head and neck-Multifocal moderate to severe narrowing within the distal intracranial portions of the bilateral vertebral arteries, proximal basilar artery as described above. Mild to moderate multifocal narrowing within the bilateral seater assembler without evidence for occlusion. No significant stenosis, occlusion, or aneurysm seen within the bilateral ACAs are MCAs. No significant stenosis, occlusion, or dissection within the bilateral carotid arteries. Moderate focal narrowing at the origin of the right vertebral artery due to the calcified plaque. MRI brain-No acute intracranial findings No evidence of intracranial mass No evidence of acute or subacute infarction Foci of increased T2 and FLAIR signal within the white matter likely on a small vessel ischemic basis.
[2020-09-20] MEDS ORDERED: lisinopril 10 MG TAB PO SCH (14:30)
--- NOTE | 2020-09-20 16:06 | Discharge Summary ---
Date of Service September 20, 2020 Admission HPI Per Admitting Provider This is a 80yo M with a PMH of HTN and history of L retinal vein occlusion who presents with stroke like symptoms beginning last evening. Noticed that he felt off balance and leaning to the right while showering last evening. Also noticed difficulty getting words out. This morning patient went shopping with and felt more off balance, leaning towards the left. noticed worsening of garbed speech as well. Denies difficulty swallowing or other focal weakness or paresthesias. No fever, chills, lightheadedness, chest pain, SOB, nausea, vomiting, abdominal pain, dysuria, diarrhea or constipation. Denies stroke history. History of carotid duplex in 2003 that was normal at outside hospital. Admission Exam Per Admitting Provider General Appearance: WD/WN, vitals as above, NAD, sitting up in bed, pleasant, conversing easily Head: normocephalic, atraumatic Eyes: normal inspection, PERRL, + chronic L visual field defect, conjunctivae normal, anicteric sclerae ENT: external ear and nose normal, oropharynx normal Neck: normal visual inspection, trachea midline, no thyromegaly Respiratory: normal respiratory effort, lungs clear to auscultation, no wheeze, rales, rhonchi. No accessory muscle use Cardiovascular: bradycardic rate, regular rhythm, no murmur appreciated, normal peripheral pulses, no BLE edema. Vessels: no JVD Chest: normal inspection of chest Abdomen/GI: normal bowel sounds, soft, nontender, no hepatosplenomegaly Extremities/Musculoskeletal: no cyanosis or clubbing, extremities motor strength 5/5 Neurologic: PERRL, EOMI, accommodation nl, no face palsy, no dysarthria, CN's II-XI intact bilaterally and moves all extremities Psychiatric: A+Ox3, euthymic affect Skin: no rashes, normal color, warm/dry Principal Diagnosis (1) Stroke-like symptoms: TIA (2) Hypertension: Discharge Exam see below Discharge Data Allergies Allergy/AdvReac Type Severity Reaction Status Date / Time No Known Allergies Allergy Unverified 09/19/20 11:16 Consultations 09/19/20 11:19 ED Decision to Admit Stat 09/19/20 16:20 Consult Neurology Routine Ordered Studies 09/19/20 10:15 CT angio head w con Stat CT angio neck with con Stat CT head/brain wo con Stat 09/19/20 16:20 MR brain wo/w con Routine Current Diagnoses Essential (primary) hypertension (09/19/20) Unspecified symptoms and signs involving the nervous system (09/19/20) Allergies No Known Allergies Allergy (Unverified 09/19/20 11:16) Height/Weight/Isolation Height 5 ft 5 in Weight 72.1 kg Chemistry 09/19/20 09/20/20 10:31 06:02 Sodium 134 L 139 Potassium 4.1 3.8 Chloride 106 108 H Carbon Dioxide 25 27 Anion Gap 3.0 4.0 BUN 13 14 Creatinine 1.01 1.21 Glucose 100 H 91 Hospital Course (1) Stroke-like symptoms: This is a 80yo M with a PMH of HTN and history of L retinal vein occlusion who presents with stroke like symptoms beginning last evening. Dysarthria and imbalance noted since last evening. Dysarthria has since resolved CT head with no acute intracranial abnormality. Atrophy and microvascular ischemic changes CTA head/neck with: 1. Multifocal moderate to severe narrowing within the distal intracranial portions of the bilateral vertebral arteries, proximal basilar artery as described above. 2. Mild to moderate multifocal narrowing within the bilateral engineering faculty member without evidence for occlusion. 3. No significant stenosis, occlusion, or aneurysm seen within the bilateral ACAs are MCAs. 4. No significant stenosis, occlusion, or dissection within the bilateral carotid arteries. 5. Moderate focal narrowing at the origin of the right vertebral artery due to the calcified plaque ED physician discussed with Arianne neurology, who recommended dual antiplatelet therapy and initiating a statin MRI brain no evidence of CVA, echo w/ bubble study pending Neuro f/u in 2 weeks Continue aspirin, plavix, Statin NPO until speech eval with gentle IV fluids (2) Hypertension: Hold home lisinopril to allow for permissive HTN for cerebral perfusion in setting of possible ischemic event DVT Ppx: SQ heparin Code status: FULL PCP: Tegan - BECCA Peterson Seen by FELECIA Mario today ASA and Plavix for 21 days the Plavix for life, Statin Labs checked ROS-No Headache, No Visual Changes, No Nausea, No Vomiting, No Fever, No Chills, No Neck Pain or Stiffness, No Chest Pain, No Palpitations, No SOB, No CABRERA, No Cough, No Sputum, No Wheezing, No Abdominal Pain, No Diarrhea, No Hematemesis, No Hemoptysis, No Unexpected Weight Loss, No Flank pain, No Melena, No Hematochezia, No Frequency, No Urgency, No Burning, No Hematuria, No Rashes, No Diaphoresis. Appetite is Normal Physical Exam Gen-AAO x 3, NAD, Afebrile Head-NCAT, EOMI, PERRLA, Anicteric Sclera, No Posterior Pharyngeal Erythema Neck-Supple, No JVD, No Thyromegaly, No Masses, No LAD, No Bruits Lungs-Clear to Auscultation Bilaterally, No Rales, No Rhonchi, No Wheezing, No Crepitus Chest-No S4, +S1, +S2, No S3, No Murmurs, No Rubs, No Gallops, No Ectopy Abdomen-Soft, Bowel Sounds Present, Non Tender, Non Distended, No Hepatomegaly, No Splenomegaly, No Palpable Masses, No Rebound, No Rigidity, No Guarding Musculoskeletal-Full Range of Motion Bilaterally, No CVAT Extremities-No Cyanosis, No Clubbing, No Edema Nuero-Cranial Nerves II-XII grossly intact, Motor WNL, DTRs WNL, Strength WNL, Non Focal Psych-Normal Mood Total Time Total Time Spent Total Time Spent (In Minutes): 45 min Total Time Includes: Examination of the Patient, Discharge Planning, Medication Reconciliation and Communication With Other Providers Discharge Plan Discharge Items Patient Disposition: Home - Self-Care Reason For Visit: STROKE EVAL Discharge Diagnosis: TIA HTN Condition on Discharge: Good Health Concerns: Recurrence of symptoms Activity: Resume your previous activity Lifting: Gradually increase as tolerated Bathing: No limitations Sexual Activity: When tolerated Exercise/Sports: Gradually increase as tolerated Driving/Machine Use: No limitations Weightbearing: Full weightbearing Non-emergency contact: Primary Care Provider and Neurologist Call non-emergency contact if: you have any medication questions Follow-up/Referrals: Bhupinder Javed MD [Primary Care Provider] - Faustino Thao DO [Physician] - (2 weeks) Diet: Heart Healthy Addtl Attending Provider Instructions: Follow up in [address] Meng Call Neurology for echo result Wednesday, I may call you with result as well Pending Studies at Discharge: Yes Studies:: TTE, May DC before result is back Stand-Alone Forms: [email or web address], Smoking Cessation Medications and DC Order Prescriptions: New clopidogrel 75 mg Tablet 75 mg PO QAM Qty: 30 RF: 0 atorvastatin 40 mg Tablet 40 mg PO QAM Qty: 30 RF: 0 Continued aspirin [Aspirin Low Dose] 81 mg Tablet,Delayed Release (Dr/Ec) 81 mg PO DAILY RF: 0 lisinopril 20 mg Tablet 10 mg PO DAILY RF: 0 Discharge Orders: Discharge Order (Routine); Ordered 09/20/20 Ordered By: Maurizio Villalta Admission Data Admit Date/Time: 09/19/20 11:24 Attending Provider: Maurizio Villalta Admit Provider: Thony Cortes Primary Care Provider: Bhupinder Javed Other Providers: Thony Cortes ; Barrington Barros
[2020-09-20] MEDS ORDERED: STROKE PATIENT DISCHARGE STA (16:08)
--- NOTE | 2020-09-20 17:11 | Pharmacy Report ---
Pharmacist Stroke Counseling - Date of Service September 20, 2020 - Scope: Pharmacy has been consulted to provide medication discharge counseling for this patient admitted with stroke like symptoms as per the Pharmacist Discharge Counseling for Stroke Patients Protocol. - Medications on Discharge: Home Medications Medication Instructions Recorded Confirmed aspirin [Aspirin Low Dose] 81 mg PO DAILY 09/19/20 09/19/20 lisinopril 10 mg PO DAILY 09/19/20 09/19/20 New Rx's Medication Instructions Recorded atorvastatin 40 mg PO QAM #30 tab 09/20/20 clopidogrel 75 mg PO QAM #30 tab 09/20/20 - Action: The above medications, specifically ones for stroke treatment/prophylaxis, have been reviewed in detail with the patient and/or patient account manager sales representative(s) prior to discharge. This includes indication, common adverse reactions, drug interactions, and medication administration. Medication counseling has been employed using the teach-back method to ensure understanding. - Outcome: The patient and/or patient account manager sales representative(s) have demonstrated understanding of the medications. Additional comments: Thank you for allowing pharmacy to be involved in the care of this patient. Please call [phone] with any additional questions
--- NOTE | 2020-10-02 13:10 | Coding Query ---
CODING QUERY To promote full compliance with coding requirements relating to patient care, provider participation is requested in all cases of behavioral instructor uncertainty. Please assist us with the question(s) below: Coding Question(s): There is documentation of possible TIA and documentation shows CTA finding of, "some severe narrowing of verts and proximal basilar artery". Please specify below, in your clinical opinion. ( X ) Possible TIA is likely due to severe narrowing of the Vertebral Artery/Arteries. Please Specify below: ( X) Bilateral ( ) Right ( ) Left ( ) Possible TIA likely due to narrowing of proximal Basilar artery ( ) Possible TIA with unknown cause and NOT due to narrowing of Vertebral or Basilar arteries ( ) Possible TIA due to Other: Please Specify Physician's Response(s): Thank you Karen Bustillos Principal Diagnosis: "that condition established after study, to be chiefly responsible for occasioning the admission of the patient to the hospital for care." Co-Existing Principal Diagnosis: "when two or more diagnoses equally meet the criteria for principal diagnosis as determined by the circumstances of admission, diagnostic work up, and/or therapy provided, and the Alphabetic Index, Tabular List, or another coding guideline does not provide sequencing direction, any one of the diagnoses may be sequenced first." "When the physician has documented what appears to be a current diagnosis in the body of the record, but has not included the diagnosis in the final diagnostic statement, the physician should be asked whether the diagnosis should be added." (Source [facility]oding [facility] 2 QTR90. p3-4) IRA
== END 2020-09-20 17:24 | disposition home or self-care (01) | DRG 68 ==
LOC: ED 10:05 → SUATTDRO 11:24 → 2S 11:24